=== PATIENT | female | born 1945 | race Caucasian/White ===

== ENCOUNTER 2019-09-19 11:41 | Outpatient (CLI) | payer MEDICARE ==
[~2019-09-19 11:41] MED LIST: AMLO10TA8 PO; CEFD300C37 PO; CLON0.1T22 PO
== END 2019-09-19 23:59 | disposition home or self-care (01) ==
LOC: CFH 11:41
PROVIDERS: ATTEND Internal Medicine Cardiovascular Disease
DX: I10 Essential (primary) hypertension (principal); R07.9 Chest pain, unspecified
CPT/HCPCS: 78452; 93017; A9502